=== PATIENT | female | born 1970 | race Caucasian/White ===

== ENCOUNTER 2020-02-27 12:49 | Outpatient (CLI) | payer BC, SELFPAY ==
--- NOTE | 2020-02-27 13:08 | MM_ITS ---
WS: [id number] BILATERAL SCREENING MAMMOGRAM WITH MERLIN DISPLACEMENT VIEWS. CAD PERFORMED. HISTORY: SCREEN COMPARISON: 11/01/2018, 10/20/2017 and 10/14/2016 Bilateral craniocaudal and mediolateral like views are performed. Merlin displacement views in CC and MLO projection also performed. Breasts composition: There are scattered areas of fibroglandular density. Retropectoral implants are intact and similar to the prior study. No suspicious mass or calcification . MM/[place] [id number] IMPRESSION: BI-RADS: 2-Benign FOLLOW-UP: 1 Year Follow-up
== END 2020-02-27 12:50 | disposition home or self-care (01) ==
LOC: RADSHAW 12:54
PROVIDERS: Visit Provider Nurse Practitioner Obstetrics & Gynecology
DX: Z12.31 Encounter for screening mammogram for malignant neoplasm of breast (principal)
CPT/HCPCS: 77067

== ENCOUNTER 2021-05-27 15:01 | Outpatient (CLI) | payer BC, SELFPAY ==
--- NOTE | 2021-05-27 15:06 | MM_ITS ---
WS: [id number] BILATERAL DIGITAL SCREENING MAMMOGRAPHY WITH CAD CLINICAL INFORMATION: SCREENING HISTORY: Screening mammogram. No current complaints. COMPARISON: February 27, 2020 TECHNIQUE: Bilateral CC and MLO views. FINDINGS: Stable bilateral breast implants which appear mammographically intact. Scattered fibroglandular densities bilaterally. No suspicious focal mass, asymmetry, calcifications, or architectural distortion. No evidence of malignancy. MM/[place] [id number] IMPRESSION: BI-RADS: 2-Benign FOLLOW UP: 1 Year Follow-up Recommend return to annual screening mammography.
== END 2021-05-27 15:02 | disposition home or self-care (01) ==
LOC: RADSHAW 15:04
PROVIDERS: PCP Nurse Practitioner Obstetrics & Gynecology; Visit Provider Nurse Practitioner Obstetrics & Gynecology
DX: Z12.31 Encounter for screening mammogram for malignant neoplasm of breast (principal)
CPT/HCPCS: 77067

== ENCOUNTER → 2021-09-12 09:19 | Outpatient (BNVA) | payer BC, SELFPAY | PROVIDERS: PCP Nurse Practitioner Obstetrics & Gynecology; Visit Provider Nurse Practitioner Women's Health | DX: Z01.419 Encounter for gynecological examination (general) (routine) without abnormal findings (principal); Z12.39 Encounter for other screening for malignant neoplasm of breast; Z12.11 Encounter for screening for malignant neoplasm of colon | CPT/HCPCS: 87624 ==

== ENCOUNTER 2022-08-18 14:59 | Outpatient (CLI) | payer BC, SELFPAY ==
--- NOTE | 2022-08-18 15:19 | MM_ITS ---
WS: [id number] BILATERAL 3D TOMOSYNTHESIS DIGITAL SCREENING MAMMOGRAPHY WITH CAD CLINICAL INFORMATION: SCREENING HISTORY: Screening mammogram. No current complaints. COMPARISON: 2020 TECHNIQUE: Bilateral CC and MLO views. FINDINGS: Bilateral breast implants appear intact. Scattered fibroglandular densities bilaterally. No suspicious focal mass, asymmetry, calcifications, or architectural distortion. No evidence of malignancy. A few incidental punctate calcifications. MM/[place] [id number] IMPRESSION: BI-RADS: 2-Benign FOLLOW UP: 1 Year Follow-up Recommend return to annual screening mammography.
== END 2022-08-18 15:00 | disposition home or self-care (01) ==
PROVIDERS: PCP Nurse Practitioner Obstetrics & Gynecology; Visit Provider Nurse Practitioner Women's Health
DX: Z12.31 Encounter for screening mammogram for malignant neoplasm of breast (principal)
CPT/HCPCS: 77063; 77067

== ENCOUNTER 2023-08-21 15:13 | Outpatient (CLI) | payer BC, SELFPAY ==
--- NOTE | 2023-08-21 15:17 | MM_ITS ---
WS: [id number] BILATERAL 3D TOMOSYNTHESIS DIGITAL SCREENING MAMMOGRAPHY WITH CAD CLINICAL INFORMATION: SCREEN HISTORY: Screening mammogram. No current complaints. COMPARISON: 2020 TECHNIQUE: Bilateral CC and MLO views. FINDINGS: Bilateral breast implants appear intact. Scattered fibroglandular densities bilaterally. No suspicious focal mass, asymmetry, calcifications, or architectural distortion. No evidence of malignancy. A few incidental punctate calcifications. Het erogeneous clustered calcifications upper outer LEFT breast appear slightly progressed compared to 20 21. Recommend spot modification views for further evaluation. RIGHT breast is unremarkable. IMPRESSION: MM/[place] [id number] BI-RADS: 0-Incomplete: Need additional imaging evaluation FOLLOW UP: Need Additional Imaging Recommend LEFT breast diagnostic mammography with spot magnification views of t he upper outer calcifications.
== END 2023-08-21 15:14 | disposition home or self-care (01) ==
LOC: RAD 15:13
PROVIDERS: PCP Nurse Practitioner Obstetrics & Gynecology; Visit Provider Nurse Practitioner Women's Health
DX: Z12.31 Encounter for screening mammogram for malignant neoplasm of breast (principal)
CPT/HCPCS: 77063; 77067

== ENCOUNTER 2023-09-24 14:48 | Outpatient (CLI) | payer BC, SELFPAY ==
--- NOTE | 2023-09-24 14:52 | MM_ITS ---
WS: [id number] LEFT 3D TOMOSYNTHESIS DIGITAL MAMMOGRAPHY WITH CAD CLINICAL INFORMATION: R92.8 - Other abnormal and inconclusive findings on diagn... HISTORY: Additional views COMPARISON: 08/21/2023 TECHNIQUE: 3 views of the left breast were obtained. FINDINGS: Scattered fibroglandular densities of the left breast. Spot magnification views of the heterogeneous clustered calcifications upper outer LEFT breast. Heterogeneous clustered calcifications. Calcificati ons are indeterminate and recommend further evaluation with stereotactic guided biopsy. IMPRESSION: MM/[place] [id number] BI-RADS: 4-Suspicious Finding-Biopsy Should Be Considered FOLLOW UP: Stereotactic Biopsy Recommended Recommend further evaluation of the calcifications with stereotactic guided bio psy.
== END 2023-09-24 14:49 | disposition home or self-care (01) ==
LOC: RAD 14:48
PROVIDERS: PCP Nurse Practitioner Obstetrics & Gynecology; Visit Provider Nurse Practitioner Women's Health
DX: R92.8 Other abnormal and inconclusive findings on diagnostic imaging of breast (principal); R92.322 Mammographic fibroglandular density, left breast; R92.1 Mammographic calcification found on diagnostic imaging of breast
CPT/HCPCS: 77061; G0279

== ENCOUNTER 2023-10-20 12:31 | Outpatient (CLI) | payer BC, SELFPAY ==
--- NOTE | 2023-10-20 12:40 | MM_ITS ---
WS: [id number] STEREOTACTIC LEFT BREAST BIOPSY WITH VACUUM ASSISTANCE. History: Heterogeneous LEFT breast calcifications. Biopsy recommended for suspicious calcifications. Comparison: 09/24/2023 Procedure, risks, and complications were discussed the patient who agreed to proceed. Prior imaging w as reviewed. Cluster of calcifications within the left breast are localized. Stereotactic imaging was performed. P atient was prepped and draped in usual sterile fashion. After 1% lidocaine, calcifications were targe franki stereotactically in the LEFT breast. Small incision was made. Needle advanced into the cluster of calcifications upper outer breast with imaging demonstrating appropriate position relative to the ca lcifications. Multiple vacuum-assisted core biopsies were obtained. Postprocedure imaging demonstrate s calcifications within the biopsy specimen. The biopsy cavity was lavaged. Titanium clip was placed at the biopsy site. Postprocedure imaging dem onstrates clip in good position. No immediate complications. IMPRESSION: 1. Uncomplicated vacuum-assisted stereotactic biopsy of calcifications in the upper outer LEFT breas t. MM/MM surgical specimen LT PATHOLOGY: 2. Hyalinized fibroadenoma with numerous calcifications. 3. Abundant fat with fibrous breast tissue. 4. Negative for malignancy. BI-RADS 2 benign Recommend return to annual screening mammography.
--- NOTE | 2023-10-20 12:40 | MM_ITS ---
WS: [email or web address] STEREOTACTIC LEFT BREAST BIOPSY WITH VACUUM ASSISTANCE. History: Heterogeneous LEFT breast calcifications. Biopsy recommended for suspicious calcifications. Comparison: 09/24/2023 Procedure, risks, and complications were discussed the patient who agreed to proceed. Prior imaging w as reviewed. Cluster of calcifications within the left breast are localized. Stereotactic imaging was performed. P atient was prepped and draped in usual sterile fashion. After 1% lidocaine, calcifications were targe franki stereotactically in the LEFT breast. Small incision was made. Needle advanced into the cluster of calcifications upper outer breast with imaging demonstrating appropriate position relative to the ca lcifications. Multiple vacuum-assisted core biopsies were obtained. Postprocedure imaging demonstrate s calcifications within the biopsy specimen. The biopsy cavity was lavaged. Titanium clip was placed at the biopsy site. Postprocedure imaging dem onstrates clip in good position. No immediate complications. IMPRESSION: 1. Uncomplicated vacuum-assisted stereotactic biopsy of calcifications in the upper outer LEFT breas t. MM/[place] [id number] PATHOLOGY: 2. Hyalinized fibroadenoma with numerous calcifications. 3. Abundant fat with fibrous breast tissue. 4. Negative for malignancy. BI-RADS 2 benign Recommend return to annual screening mammography.
--- NOTE | 2023-10-20 13:00 | MM_ITS ---
WS: [email or web address] STEREOTACTIC LEFT BREAST BIOPSY WITH VACUUM ASSISTANCE. History: Heterogeneous LEFT breast calcifications. Biopsy recommended for suspicious calcifications. Comparison: 09/24/2023 Procedure, risks, and complications were discussed the patient who agreed to proceed. Prior imaging w as reviewed. Cluster of calcifications within the left breast are localized. Stereotactic imaging was performed. P atient was prepped and draped in usual sterile fashion. After 1% lidocaine, calcifications were targe franki stereotactically in the LEFT breast. Small incision was made. Needle advanced into the cluster of calcifications upper outer breast with imaging demonstrating appropriate position relative to the ca lcifications. Multiple vacuum-assisted core biopsies were obtained. Postprocedure imaging demonstrate s calcifications within the biopsy specimen. The biopsy cavity was lavaged. Titanium clip was placed at the biopsy site. Postprocedure imaging dem onstrates clip in good position. No immediate complications. IMPRESSION: 1. Uncomplicated vacuum-assisted stereotactic biopsy of calcifications in the upper outer LEFT breas t. MM/[place] [id number] PATHOLOGY: 2. Hyalinized fibroadenoma with numerous calcifications. 3. Abundant fat with fibrous breast tissue. 4. Negative for malignancy. BI-RADS 2 benign Recommend return to annual screening mammography.
== END 2023-10-20 12:32 | disposition home or self-care (01) ==
LOC: RAD 12:32
PROVIDERS: PCP Nurse Practitioner Obstetrics & Gynecology; Visit Provider Nurse Practitioner Women's Health
DX: R92.8 Other abnormal and inconclusive findings on diagnostic imaging of breast (principal); D24.2 Benign neoplasm of left breast
CPT/HCPCS: 19081; 77065; 88305

== ENCOUNTER 2024-12-06 13:52 | Outpatient (CLI) | payer OTHER, SELFPAY ==
--- NOTE | 2024-12-06 | MM_ITS ---
WS: [id number] BILATERAL 3D TOMOSYNTHESIS DIGITAL SCREENING MAMMOGRAPHY WITH CAD CLINICAL INFORMATION: ANNUAL SCREENING HISTORY: Screening mammogram. No current complaints. COMPARISON: 2023 TECHNIQUE: Bilateral CC and MLO views. FINDINGS: The breasts are composed of heterogeneous fibroglandular density tissue, which can limit the detection of small underlying mass lesions. No suspicious mass, asymmetry, calcifications, or architectural distortion. No evidence of malignancy. Interval removal of breast implants. Biopsy clip LEFT breast. MM/MM scr tomosynthesis [id number] IMPRESSION: DENSITY: The breasts are heterogeneously dense, which may obscure small masses. BI-RADS: 2 - Benign FOLLOW UP: 1 Year Follow-up Recommend return to annual screening mammography.
== END 2024-12-06 13:53 | disposition home or self-care (01) ==
PROVIDERS: PCP Physician Assistant; Visit Provider Physician Assistant
DX: Z12.31 Encounter for screening mammogram for malignant neoplasm of breast (principal); R92.333 Mammographic heterogeneous density, bilateral breasts
CPT/HCPCS: 77063; 77067